=== PATIENT | female | born 1995 | race African-American/Black ===

== ENCOUNTER 2017-09-13 15:23 | Emergency (ER) | payer SELFPAY ==
[~2017-09-13] VITALS: Ht 175.3 cm; Wt 103.0 kg
[~2017-09-13 15:23] MED LIST: MULTI VITAMINS1 TAB PO; ULTRAM 50MG TAB50 MG PO; ZOFRAN ODT4 MG PO; ZOFRAN8 MG PO
[2017-09-13 15:38] VITALS: TEMP 99.1
[2017-09-13 16:32] LABS: BASO % 0.5 % (0.0-2.0); EOS # 0.2 (0.0-0.7); EOS % 3.1 % (0-4.0); GRAN # 3.6 (1.4-6.5); GRAN % 48.8 % (42.2-75.2); HEMATOCRIT 41.9 % (35.0-45.0); HEMOGLOBIN 13.6 g/dl (12.0-15.0); LYMPH # 3.1 (1.2-3.4); LYMPH % 41.3 % (20.0-51.0); MEAN CELL VOLUME 86 fl (80.0-95.0); MEAN CORPUSCULAR HEMOGLOBIN 28 pg (26.0-32.0); MEAN CORPUSCULAR HGB CONC 33 g/dl (33.0-37.0); MEAN PLATELET VOLUME 10.8 fl (7.4-10.4); MONO # 0.4 (0.1-0.6); MONO % 5.9 % (1.7-9.3); PLATELET COUNT 253 K/mm3 (130-400); WHITE BLOOD COUNT 7.4 K/mm3 (4.8-10.8)
[2017-09-13 16:38] LABS: ADJUSTED CALCIUM 8.5 mg/dL (8.4-10.2); ALBUMIN 5.1 gm/dL (3.5-5.0); BILIRUBIN,TOTAL 1.7 mg/dL (0.0-1.0); CALCIUM 9.4 mg/dL (8.4-10.2); CREATININE, serum 0.68 mg/dL (0.52-1.25); TOTAL PROTEIN 7.9 gm/dL (6.4-8.2)
[2017-09-13 17:16] LABS: COLLECTION METHOD CLEAN CATCH
[2017-09-13 17:40] LABS: PH 8 (5-8); SQUAMOUS EPITHELIAL 0-2 /hpf; URINE APPEARANCE Clear; URINE BACTERIA None Seen /hpf; URINE BILIRUBIN Negative (NEGATIVE); URINE BLOOD 1+ (NEGATIVE); URINE COLOR Yellow; URINE GLUCOSE Negative (NEGATIVE); URINE KETONE Negative (NEGATIVE); URINE LEUKOCYTE ESTERASE Negative (NEGATIVE); URINE PROTEIN(semi-quant) Negative (NEGATIVE); URINE RBC 0-2 /hpf; URINE WBC 0-2 /hpf
[2017-09-13 18:32] VITALS: BP 119/70; PULSE 72
[2017-09-13 19:17] LABS: CHLAMYDIA/TRACH by PCR Female NOT DETECTED; NEISSERIA GON by PCR Female NOT DETECTED
== END 2017-09-13 18:34 | disposition home or self-care (01) ==
LOC: COL.ER 15:23
PROVIDERS: Physician Assistant
DX: O20.0 Threatened abortion (principal); Z3A.01 Less than 8 weeks gestation of pregnancy; Z87.59 Personal history of other complications of pregnancy, childbirth and the puerperium

== ENCOUNTER 2018-05-21 22:41 | Emergency (ER) | payer MEDICAID ==
[~2018-05-21] VITALS: Ht 175.3 cm; Wt 104.1 kg
[2018-05-21 22:45] VITALS: BP 139/87; TEMP 97.8
[2018-05-21 23:25] LABS: COLLECTION METHOD CLEAN CATCH
[2018-05-21 23:27] LABS: BASO % 0.3 % (0.0-2.0); EOS # 0.2 (0.0-0.7); EOS % 2.5 % (0-4.0); GRAN # 3.9 (1.4-6.5); GRAN % 52.8 % (42.2-75.2); HEMOGLOBIN 11.3 g/dl (12.0-15.0); LYMPH # 2.6 (1.2-3.4); LYMPH % 35.9 % (20.0-51.0); MEAN CELL VOLUME 82 fl (80.0-95.0); MEAN CORPUSCULAR HEMOGLOBIN 27 pg (26.0-32.0); MEAN CORPUSCULAR HGB CONC 33 g/dl (33.0-37.0); MEAN PLATELET VOLUME 10.3 fl (7.4-10.4); MONO # 0.6 (0.1-0.6); MONO % 8.2 % (1.7-9.3); PLATELET COUNT 253 K/mm3 (130-400); RED BLOOD COUNT 4.26 M/mm3 (4.10-5.30); REDCELL DISTRIBUTION WIDTH-CV 12.3 % (11.5-14.5)
[2018-05-21 23:28] LABS: HEMATOCRIT 34.8 % (35.0-45.0)
[2018-05-21 23:37] LABS: ALBUMIN 3.8 gm/dL (3.5-5.0); BILIRUBIN,TOTAL 1.2 mg/dL (0.0-1.0); CREATININE, serum 0.49 mg/dL (0.52-1.25); POTASSIUM 3.9 mmol/L (3.4-5.0); TOTAL PROTEIN 6.9 gm/dL (6.4-8.2)
[2018-05-21 23:43] LABS: MUCOUS Present /lpf; PH 7 (5-8); URINE APPEARANCE Cloudy; URINE BACTERIA Moderate /hpf; URINE BILIRUBIN Negative (NEGATIVE); URINE BLOOD 2+ (NEGATIVE); URINE COLOR Yellow; URINE GLUCOSE Negative (NEGATIVE); URINE KETONE Negative (NEGATIVE); URINE LEUKOCYTE ESTERASE 3+ (NEGATIVE); URINE NITRATE Negative (NEGATIVE); URINE PROTEIN(semi-quant) 1+ (NEGATIVE); URINE RBC None Seen /hpf; URINE UROBILINOGEN Negative (NEGATIVE)
[2018-05-21] MEDS ORDERED: VALTREX1 GM PO (23:45)
[2018-05-22] MEDS ORDERED: CLOTRIMAZOLE 32% VG (02:02)
[2018-05-22] MEDS ORDERED: OMNICEF 300MG300 MG PO (02:02)
[2018-05-22 02:20] VITALS: PULSE 87
== END 2018-05-22 02:20 | disposition home or self-care (01) ==
LOC: COL.ER 22:41
PROVIDERS: Physician Assistant
DX: N76.0 Acute vaginitis (principal); N39.0 Urinary tract infection, site not specified
CPT/HCPCS: J0696; J7030

== ENCOUNTER 2018-06-15 08:59 | Emergency (ER) | payer MEDICAID ==
[~2018-06-15] VITALS: Ht 175.3 cm; Wt 105.9 kg
[~2018-06-15 08:59] MED LIST changes: +CLOTRIMAZOLE 32% VG; +OMNICEF 300MG300 MG PO; +VALTREX1 GM PO
[2018-06-15 09:01] VITALS: BP 129/69; TEMP 98.7
[2018-06-15 10:06] VITALS: PULSE 77
== END 2018-06-15 10:07 | disposition home or self-care (01) ==
LOC: COL.ER 08:59
DX: O9A.213 Injury, poisoning and certain other consequences of external causes complicating pregnancy, third trimester (principal); M65.4 Radial styloid tenosynovitis [de Quervain]; Z3A.38 38 weeks gestation of pregnancy; Z88.0 Allergy status to penicillin; X50.0XXA Overexertion from strenuous movement or load, initial encounter

== ENCOUNTER → 2018-06-25 | Outpatient (CLI) | payer MEDICAID ==
[~2018-06-25] VITALS: Ht 172.7 cm; Wt 104.5 kg
[~2018-06-25] MED LIST changes: +IBU600 MG PO; +PERCOCET 325 MG1 TA2 PO
[2018-06-25 23:10] VITALS: BP 121/79; PULSE 85; TEMP 98.5
[2018-06-25 23:35] VITALS: BP 120/79; PULSE 102
[2018-06-26 00:31] VITALS: BP 125/82; PULSE 118; TEMP 98
== END ==
LOC: LDRO 22:13
DX: O47.1 False labor at or after 37 completed weeks of gestation (principal); Z3A.39 39 weeks gestation of pregnancy

== ENCOUNTER 2018-09-06 13:48 | Outpatient (RCR) | payer MEDICAID | END 2018-12-05 | disposition home or self-care (01) | LOC: MKS.ESL.PT | DX: M65.4 Radial styloid tenosynovitis [de Quervain] (principal); Z79.3 Long term (current) use of hormonal contraceptives; Z79.899 Other long term (current) drug therapy ==

== ENCOUNTER 2019-02-22 07:41 | Day surgery (SDC) | payer MEDICAID ==
[2019-02-22] VITALS (9 sets, daily range): BP systolic 90–101; BP diastolic 43–60; PULSE 87–116; TEMP 98.3
[~2019-02-22] VITALS: Ht 175.3 cm; Wt 106.4 kg
[2019-02-22 08:13] LABS: BASO % 0.5 % (0.0-2.0); EOS # 0.4 (0.0-0.7); EOS % 4.2 % (0-4.0); GRAN # 4.6 (1.4-6.5); HEMOGLOBIN 13.2 g/dl (12.5-16.0); LYMPH # 2.8 (1.2-3.4); MEAN CELL VOLUME 85 fl (80.0-100.0); MEAN CORPUSCULAR HEMOGLOBIN 27 pg (27.0-31.0); MEAN CORPUSCULAR HGB CONC 32 g/dl (33.0-37.0); MEAN PLATELET VOLUME 10.7 fl (7.4-10.4); MONO # 0.5 (0.1-0.6); MONO % 5.9 % (1.7-9.3); PLATELET COUNT 244 K/mm3 (130-400); RED BLOOD COUNT 4.85 M/mm3 (4.10-5.30); REDCELL DISTRIBUTION WIDTH-CV 12.2 % (11.5-14.5)
[2019-02-22 08:21] LABS: ALBUMIN 4.4 gm/dL (3.5-5.0); BILIRUBIN,TOTAL 0.8 mg/dL (0.0-1.0); CALCIUM 9.2 mg/dL (8.4-10.2); CREATININE, serum 0.63 (0.52-1.25); POTASSIUM 4.2 mmol/L (3.4-5.0); TOTAL PROTEIN 7.5 gm/dL (6.4-8.2)
--- NOTE | 2019-02-22 10:00 | NUR ---
Patient to room 3 per cart from surgery after having D&C. Mary pad with mesh panties on and scant vaginal discharge. Arouses to verbal stimuli and is asking questions. Patient was taken to surgery from the emergency room. IV fluids infusing and call light in reach. Allowed to rest. Temp 99.1 and room air sats 97% Siderails up x2 and call light in reach.
--- NOTE | 2019-02-22 10:15 | NUR ---
Resting and siderails up x2.
--- NOTE | 2019-02-22 10:30 | NUR ---
Continues to rest and offers no complaints of pain.
--- NOTE | 2019-02-22 10:45 | NUR ---
Mary pad continues with minimal discharge.
--- NOTE | 2019-02-22 11:00 | NUR ---
Family here and patient is awake and talking. Drinking water and eating crackers. Denies pain or nausea.
--- NOTE | 2019-02-22 11:30 | NUR ---
IV all infused and discontinued. Assisted up to the bathroom and states that she feels dizzy with movement. Voids and returns to room. Patient dresses self and family remains in the room.
--- NOTE | 2019-02-22 11:55 | NUR ---
Patient allowed to rest. States that she feels tired and continues to have some dizziness when up. Will continue to monitor. States that she is hungry.
--- NOTE | 2019-02-22 12:10 | NUR ---
Eating soup and crackers and sipping on orange juice.
--- NOTE | 2019-02-22 12:20 | NUR ---
Allowed to rest after eating. Minimal vaginal discharge on elizabeth pad.
--- NOTE | 2019-02-22 12:50 | NUR ---
Awake and states that she is feeling much better and ready to go home. Given dismissal instructions and voices understanding of these. Instructed that Motrin script was faxed to [facility]. Instructed to take the Motrin with food.
--- NOTE | 2019-02-22 12:55 | NUR ---
Patiente dismissed to home per private vehicle driven by Aunt and taken to the front door per wheelchair by RN and assisted into vehicle.
== END 2019-02-22 12:55 | disposition home or self-care (01) ==
LOC: COL.ER 07:41 → SDCO 09:03
PROVIDERS: Emergency Medicine
DX: O03.4 Incomplete spontaneous abortion without complication (principal); Z88.0 Allergy status to penicillin; Z91.018 Allergy to other foods; Z83.3 Family history of diabetes mellitus
CPT/HCPCS: J1170; J1885; J2405; J2704; J3010; J7030; J7120

== ENCOUNTER 2024-05-11 20:20 | Emergency (ER) | payer SELFPAY ==
[~2024-05-11] VITALS: Ht 175.3 cm; Wt 68.2 kg
[2024-05-11 20:25] VITALS: TEMP 98.7
[2024-05-11 21:23] LABS: COLLECTION METHOD CLEAN CATCH
[2024-05-11 21:32] LABS: URINE APPEARANCE CLEAR (CLEAR/HAZY); URINE BLOOD NEGATIVE (NEGATIVE); URINE COLOR YELLOW (YELLOW); URINE GLUCOSE NEGATIVE (NEGATIVE); URINE KETONE NEGATIVE (NEGATIVE); URINE NITRATE NEGATIVE (NEGATIVE); URINE PROTEIN(semi-quant) TRACE (NEGATIVE)
[2024-05-11] MEDS ORDERED: Ketorolac 30 MG/ML VIAL IV ONE (22:30)
[2024-05-11 22:42] LABS: BASO # 0.1 K/mm3 (0.0-0.2); BASO % 0.5 % (0.0-2.0); EOS # 0.2 K/mm3 (0.0-0.7); EOS % 2.1 % (0.0-4.0); GRAN # 5.1 K/mm3 (1.4-6.5); GRAN % 47.8 % (42.2-75.2); HEMOGLOBIN 11.3 g/dl (12.5-16.0); LYMPH # 4.6 K/mm3 (1.2-3.4); MEAN CELL VOLUME 88 fl (80.0-100.0); MEAN CORPUSCULAR HEMOGLOBIN 28 pg (27-31); MEAN CORPUSCULAR HGB CONC 32 g/dl (33.0-37.0); MEAN PLATELET VOLUME 9.8 fl (7.4-10.4); MONO # 0.6 K/mm3 (0.1-0.6); MONO % 5.4 % (1.7-9.3); PLATELET COUNT 253 K/mm3 (130-400); RED BLOOD COUNT 4.02 M/mm3 (4.10-5.30)
[2024-05-11 22:47] LABS: HEMATOCRIT 35.3 % (37.0-47.0)
[2024-05-11] MEDS ORDERED: NS 50 ML IV SCH (22:47)
[2024-05-11] MEDS ORDERED: Iohexol 300 - 100 ML VIAL IV ONE (22:47)
[2024-05-11 23:03] LABS: ALBUMIN 4.2 g/dL (3.5-5.0); BILIRUBIN,TOTAL 1.2 mg/dL (0.2-1.2); CALCIUM 9.3 mg/dL (8.4-10.2); CREATININE, serum 0.76 mg/dL (0.57-1.11); POTASSIUM 3.9 mEq/L (3.5-4.5); TOTAL PROTEIN 6.3 g/dl (6.2-8.1)
[2024-05-11] MEDS ORDERED: Home HYDROcodone/Acetaminophen 5/325 MG #4 TABS/PACK PO ONE (23:45)
[2024-05-12 00:03] VITALS: BP 121/81; PULSE 85
== END 2024-05-12 00:05 | disposition home or self-care (01) ==
LOC: COL.ER 20:20
PROVIDERS: Physician Assistant
DX: R10.2 Pelvic and perineal pain (principal); R00.0 Tachycardia, unspecified
CPT/HCPCS: J1885; Q9967